=== PATIENT | male | born 1995 | race Caucasian/White ===

== ENCOUNTER 2018-03-15 18:39 | Emergency (ER) | payer BC ==
[~2018-03-15] VITALS: Ht 175.3 cm; Wt 85.3 kg
[2018-03-15 18:41] VITALS: Ht 175.3 cm; Wt 85.3 kg
[2018-03-15 19:36] LABS: BASOPHIL % 0.5 % (0-2); PLATELET COUNT 136 x10^3mcL (130-400); RED CELL DISTRIBUTION WIDTH 12.9 % (11.5-14.5)
[2018-03-15 19:42] LABS: CALCIUM 8.8 mg/dL (8.5-10.1); CARBON DIOXIDE 29.1 mmol/L (21-32); CHLORIDE SERUM 102 mmol/L (98-107); GFR1 > 60 mL/min; GLUCOSE SERUM 85 mg/dL (74-106); POTASSIUM SERUM 3.9 mmol/L (3.5-5.1); SODIUM SERUM 136 mmol/L (136-145)
[2018-03-15 19:45] LABS: ALBUMIN 3.8 g/dL (3.4-5.0); ALKALINE PHOSPHATASE 91 U/L (46-116); ALT/SGPT 86 U/L (16-63); AMYLASE 44 U/L (25-115); AST/SGOT 71 U/L (15-37); BILIRUBIN TOTAL 1.38 mg/dL (0.20-1.00); LIPASE 80 IU/L (73-393); TOTAL PROTEIN, SERUM 7.1 g/dL (6.4-8.2)
[2018-03-15 20:51] LABS: T4(THYROXINE) 6.5 ug/dL (4.7-13.3)
[2018-03-15 21:06] LABS: UA SPECIFIC GRAVITY <=1.005 (1.005-1.035); microscopic required? YES; urine erythrocyte TRACE (NEGATIVE)
[2018-03-15 21:12] LABS: AMPHETAMINE QUAL UR NONE DETECTED (See below)
[2018-03-15 22:15] VITALS: BP 137/69
== END 2018-03-15 22:15 | disposition home or self-care (01) ==
LOC: ED 18:39
PROVIDERS: Emergency Medicine
DX: B34.9 Viral infection, unspecified (principal); K21.9 Gastro-esophageal reflux disease without esophagitis
CPT/HCPCS: 83880; 86308; J1885; J2405; Q0092